=== PATIENT | male | born 1980 | race Caucasian/White ===

== ENCOUNTER 2016-02-28 18:37 | Emergency (ER) | payer OTHER ==
[~2016-02-28] VITALS: Ht 175.3 cm; Wt 104.6 kg
[~2016-02-28 18:37] MED LIST: ADDERALL XR 3030 MG PO; AMOXICILLIN500 MG PO; BUPRENORPHINE HC8 MG SL; BUPROPION HCL75 MG PO; BUPROPION XL150 MG PO; DIVALPROEX SOD250 M1 PO; FLEXERIL10 MG PO; FLUTICASONE PRO16 GM BOTH NARES; GABAPENTIN300 MG PO; GABAPENTIN400 MG PO; GABAPENTIN800 MG PO; KLONOPIN2 MG PO; LITHIUM CARBON300 M2 PO; METHADONE1 MG/1 ML PO; METHADONE10 MG PO; METHADONE10 MG/1 M1 PO; MOTRIN600 MG PO; NAPROSYN500 MG PO; NEURONTIN600 MG PO; NORCO 5/3251 TABLET PO; PHENOBARBITAL32.4 MG PO; PRAZOSIN HCL1 MG PO; PRAZOSIN HCL2 MG PO; RISPERDAL0.25 MG PO; RISPERDAL2 MG PO; RISPERIDONE1 MG PO; SUBOXONE 12 MG1 EACH SL; SUBOXONE 8 MG-1 EAC2 SL; WELLBUTRIN XL150 MG PO; WELLBUTRIN XL300 MG PO; XANAX2 MG PO; ZOLOFT50 MG PO
[2016-02-28] MEDS ORDERED: CLEOCIN300 MG PO (20:06)
[2016-02-28] MEDS ORDERED: NORCO 5/3251 TABLET PO (20:06)
[2016-02-28 20:26] VITALS: BP 138/86
== END 2016-02-28 20:27 | disposition home or self-care (01) ==
LOC: EME 18:37
DX: L03.211 Cellulitis of face (principal); Z86.14 Personal history of Methicillin resistant Staphylococcus aureus infection
CPT/HCPCS: 99281; 99283

== ENCOUNTER 2016-04-13 21:11 | Emergency (ER) | payer OTHER ==
[~2016-04-13] VITALS: Ht 175.3 cm; Wt 98.3 kg
[~2016-04-13 21:11] MED LIST changes: +CLEOCIN300 MG PO
[2016-04-13] MEDS ORDERED: ADDERALL XR 3030 MG PO (21:18)
[2016-04-13] MEDS ORDERED: GABAPENTIN800 MG PO (21:19)
[2016-04-13] MEDS ORDERED: METHADONE10 MG PO (21:19)
[2016-04-13 21:43] LABS: HEMATOCRIT 40.2 % (38.0-50.0); MCH 30.1 PG (29.0-34.0); MCHC 36.3 G/DL (30.0-36.0); MCV 82.9 FL (86-99); MEAN PLAT.VOLUME 11.2 uM^3 (9.0-12.4); PLATELET COUNT 257 K/uL (156-360); RBC DIS.WIDTH-CV 12.6 % (11.8-14.6); RBC DIS.WIDTH-SD 37.2 % (39-53); RED BLOOD COUNT 4.85 M/uL (4.00-5.50); WHITE BLOOD COUNT 12.8 K/uL (4.1-10.2)
[2016-04-13 21:46] LABS: EOSINOPHIL (%) 1.3 % (0-5); EOSINOPHIL COUNT 0.2 K/uL (0-0.3); IMMATURE GRANULOCYTE (%) 0.2 % (0.0-0.7); IMMATURE GRANULOCYTE COUNT 0.2 K/uL; LYMPHOCYTE COUNT 2.6 K/uL (1.0-2.8); MONOCYTE (%) 7.4 % (3-12); NEUTROPHIL (%) 70.6 % (45-76)
[2016-04-13 21:56] LABS: AMYLASE 30 IU/L (1-118); CHLORIDE 107 mEq/L (99-109); POTASSIUM 3.8 mEq/L (3.7-5.4); SODIUM 141 mEq/L (136-147)
[2016-04-13 21:58] LABS: GLUCOSE 94 mg/dL (70-99)
[2016-04-13 21:59] LABS: ANION GAP 12 MEQ/L (2-14)
[2016-04-13 22:01] LABS: SERUM ETHYL ALCOHOL < 10 mg/dL
[2016-04-13 22:02] LABS: GFR ESTIMATE (CALCULATED) > 59 mL/min/
[2016-04-13 22:03] LABS: UREA NITROGEN (BUN) 11 mg/dL (9-23)
[2016-04-13 22:05] LABS: LIPASE 11 U/L (1.0-51.0)
[2016-04-13 23:27] LABS: ADD MIUA? NO; BILIRUBIN NEGATIVE; BLOOD NEGATIVE; COLOR YELLOW ((YELLOW)); GLUCOSE (STRIP) NEGATIVE; KETONES NEGATIVE; LEUKOCYTES NEGATIVE; NITRITE NEGATIVE; PROTEIN (STRIP) NEGATIVE; UCUL ADDED? NO; UROBILINOGEN 0.2 MG/DL (0.2-1.0)
[2016-04-13 23:36] LABS: AMPHETAMINE NEGATIVE (500 ng/mL); COCAINE NEGATIVE (150 ng/mL); METHAMPHETAMINE NEGATIVE (500 ng/mL); OPIATES (MORPHINE) PRESUMPTIVE POSITIVE (100 ng/mL); PHENCYCLIDINE NEGATIVE (25 ng/mL); THC CANNABINOIDS NEGATIVE (50 ng/mL)
[2016-04-13 23:37] LABS: BARBITURATES NEGATIVE (200 ng/mL); BENZODIAZEPINES PRESUMPTIVE POSITIVE (150 ng/mL); INTERNAL CONTROLS VALID? YES; METHADONE PRESUMPTIVE POSITIVE (200 ng/mL); OXYCODONE NEGATIVE (100 ng/mL); PROPOXYPHENE NEGATIVE (300 ng/mL); TRICYCLIC ANTIDEPRESSANTS NEGATIVE (300 ng/mL)
[2016-04-13 23:38] LABS: ADD MEDTOX COMMENT Y
[2016-04-13 23:45] LABS: SPECIFIC GRAVITY 1.051 (1.000-1.030)
[2016-04-14 00:21] LABS: BENZODIAZEPINES, URINE SCREEN POSITIVE (200 ng/mL)
[2016-04-14] MEDS ORDERED: PREDNISONE20 MG PO (02:41)
[2016-04-14] MEDS ORDERED: NORCO 5/3251 TABLET PO (02:41)
[2016-04-14 03:02] VITALS: BP 146/82
== END 2016-04-14 03:03 | disposition home or self-care (01) ==
LOC: EME 21:11 → TRA 21:11
PROVIDERS: Emergency Medicine
DX: S13.9XXA Sprain of joints and ligaments of unspecified parts of neck, initial encounter (principal); S20.229A Contusion of unspecified back wall of thorax, initial encounter; S33.5XXA Sprain of ligaments of lumbar spine, initial encounter; V49.88XA Car occupant (driver) (passenger) injured in other specified transport accidents, initial encounter; F41.9 Anxiety disorder, unspecified; F17.200 Nicotine dependence, unspecified, uncomplicated
CPT/HCPCS: 70450; 71260; 72125; 72128; 72129; 72131; 72132; 72141; 74177; 80048; 81003; 82150; 83690; 84999; 85025; 86850; 86900; 86901; 99281; 99285; G0480; J2060; J2270; J2405; J7030

== ENCOUNTER 2016-04-19 09:50 | Emergency (ER) | payer OTHER ==
[~2016-04-19] VITALS: Ht 175.3 cm; Wt 97.2 kg
[~2016-04-19 09:50] MED LIST changes: +PREDNISONE20 MG PO
[2016-04-19 10:28] VITALS: BP 127/81
[2016-04-19 11:42] LABS: HEMATOCRIT 42.8 % (38.0-50.0); MCH 29.4 PG (29.0-34.0); MCHC 34.6 G/DL (30.0-36.0); MCV 84.9 FL (86-99); MEAN PLAT.VOLUME 11.2 uM^3 (9.0-12.4); PLATELET COUNT 223 K/uL (156-360); RBC DIS.WIDTH-CV 12.7 % (11.8-14.6); RBC DIS.WIDTH-SD 38.5 % (39-53); RED BLOOD COUNT 5.04 M/uL (4.00-5.50)
[2016-04-19 11:51] LABS: CHLORIDE 107 mEq/L (99-109); SODIUM 140 mEq/L (136-147)
[2016-04-19 11:53] LABS: GLUCOSE 91 mg/dL (70-99)
[2016-04-19 11:54] LABS: ANION GAP 7 MEQ/L (2-14); POTASSIUM 4.6 mEq/L (3.7-5.4)
[2016-04-19 11:56] LABS: SERUM ETHYL ALCOHOL < 10 mg/dL
[2016-04-19 11:57] LABS: GFR ESTIMATE (CALCULATED) > 59 mL/min/; UREA NITROGEN (BUN) 9 mg/dL (9-23)
[2016-04-19 11:58] LABS: WHITE BLOOD COUNT 4.6 K/uL (4.1-10.2)
== END 2016-04-19 13:25 | disposition left against medical advice (07) ==
LOC: EME 09:50
DX: R45.850 Homicidal ideations (principal); Z53.21 Procedure and treatment not carried out due to patient leaving prior to being seen by health care provider
CPT/HCPCS: 80048; 85027; G0480

== ENCOUNTER 2016-06-21 21:24 | Inpatient (IN) | payer OTHER ==
[~2016-06-21] VITALS: Ht 175.3 cm; Wt 95.5 kg
[2016-06-21 23:02] LABS: HEMATOCRIT 42.2 % (38.0-50.0); MCH 28.9 PG (29.0-34.0); MCHC 33.6 G/DL (30.0-36.0); MCV 85.9 FL (86-99); MEAN PLAT.VOLUME 10.9 uM^3 (9.0-12.4); PLATELET COUNT 292 K/uL (156-360); RBC DIS.WIDTH-CV 12.5 % (11.8-14.6); RBC DIS.WIDTH-SD 38.8 % (39-53); RED BLOOD COUNT 4.91 M/uL (4.00-5.50)
[2016-06-21 23:12] LABS: CHLORIDE 106 mEq/L (99-109); POTASSIUM 4.1 mEq/L (3.7-5.4); SODIUM 141 mEq/L (136-147)
[2016-06-21 23:14] LABS: GLUCOSE 76 mg/dL (70-99)
[2016-06-21 23:15] LABS: ANION GAP 10 MEQ/L (2-14)
[2016-06-21 23:17] LABS: SERUM ETHYL ALCOHOL < 10 mg/dL
[2016-06-21 23:18] LABS: AMPHETAMINE NEGATIVE (500 ng/mL); BARBITURATES NEGATIVE (200 ng/mL); BENZODIAZEPINES NEGATIVE (150 ng/mL); COCAINE PRESUMPTIVE POSITIVE (150 ng/mL); INTERNAL CONTROLS VALID? YES; METHADONE PRESUMPTIVE POSITIVE (200 ng/mL); METHAMPHETAMINE NEGATIVE (500 ng/mL); OPIATES (MORPHINE) NEGATIVE (100 ng/mL); OXYCODONE NEGATIVE (100 ng/mL); PHENCYCLIDINE NEGATIVE (25 ng/mL); PROPOXYPHENE NEGATIVE (300 ng/mL); THC CANNABINOIDS NEGATIVE (50 ng/mL); TRICYCLIC ANTIDEPRESSANTS NEGATIVE (300 ng/mL)
[2016-06-21 23:18] LABS: GFR ESTIMATE (CALCULATED) > 59 mL/min/
[2016-06-21 23:19] LABS: UREA NITROGEN (BUN) 16 mg/dL (9-23)
[2016-06-21 23:19] LABS: ADD MEDTOX COMMENT Y
[2016-06-22] MEDS ORDERED: PRAZOSIN HCL2 MG PO (11:17)
[2016-06-22] MEDS ORDERED: METHADONE10 MG/1 M1 PO (11:18)
[2016-06-22] MEDS ORDERED: WELLBUTRIN SR150 MG PO (11:19)
[2016-06-22 13:33] VITALS: BP 138/84
[2016-06-22 16:10] VITALS: BP 129/75
[2016-06-23 08:12] VITALS: BP 115/68
[2016-06-23 16:20] VITALS: BP 131/79
[2016-06-24 08:00] VITALS: BP 125/68
[2016-06-24 15:50] VITALS: BP 109/72
[2016-06-25 07:46] VITALS: BP 134/76
[2016-06-25 15:30] VITALS: BP 113/74
[2016-06-26 07:49] VITALS: BP 121/62
[2016-06-26 15:32] VITALS: BP 127/59
[2016-06-27 07:47] VITALS: BP 126/65
[2016-06-27] MEDS ORDERED: PRAZOSIN HCL1 MG PO (09:14)
[2016-06-27] MEDS ORDERED: GABAPENTIN800 MG PO (09:14)
[2016-06-27] MEDS ORDERED: BUPROPION XL300 MG PO (09:14)
== END 2016-06-27 10:04 | DRG 918 ==
LOC: EME 21:24 → EDOF 06-22 11:01 → 1WEST 06-22 11:01
DX: T40.1X2A Poisoning by heroin, intentional self-harm, initial encounter (principal); F11.20 Opioid dependence, uncomplicated; F33.2 Major depressive disorder, recurrent severe without psychotic features; F14.10 Cocaine abuse, uncomplicated; Z76.5 Malingerer [conscious simulation]
CPT/HCPCS: 80048; 84999; 85027; 90839; 97150 GO; 97165 GO; 99281; 99285; G0480; Q0177

== ENCOUNTER 2016-08-12 00:51 | Emergency (ER) | payer OTHER ==
[~2016-08-12] VITALS: Ht 175.3 cm; Wt 97.3 kg
[~2016-08-12 00:51] MED LIST changes: +BUPROPION XL300 MG PO; +WELLBUTRIN SR150 MG PO
[2016-08-12] MEDS ORDERED: TYLENOL WITH C1 EACH PO (01:51)
[2016-08-12] MEDS ORDERED: PEN-VEE K,VEET500 MG PO (01:51)
[2016-08-12 02:14] VITALS: BP 125/82
== END 2016-08-12 02:15 | disposition home or self-care (01) ==
LOC: EME 00:51
PROC: 3E0T3BZ Introduction of Anesthetic Agent into Peripheral Nerves and Plexi, Percutaneous Approach (ICD-10-PCS; principal; 2016-08-12)
DX: K08.89 Other specified disorders of teeth and supporting structures (principal); F17.200 Nicotine dependence, unspecified, uncomplicated
CPT/HCPCS: 99281; 99284

== ENCOUNTER 2016-08-22 23:59 | Inpatient (IN) | payer OTHER ==
[~2016-08-22] VITALS: Ht 175.3 cm; Wt 92.2 kg
[~2016-08-22 23:59] MED LIST changes: +PEN-VEE K,VEET500 MG PO; +TYLENOL WITH C1 EACH PO
[2016-08-23 02:03] LABS: HEMATOCRIT 39.3 % (38.0-50.0); MCH 29.4 PG (29.0-34.0); MCHC 33.8 G/DL (30.0-36.0); MCV 86.9 FL (86-99); MEAN PLAT.VOLUME 10.9 uM^3 (9.0-12.4); PLATELET COUNT 215 K/uL (156-360); RBC DIS.WIDTH-CV 12.5 % (11.8-14.6); RBC DIS.WIDTH-SD 39.8 % (39-53); RED BLOOD COUNT 4.52 M/uL (4.00-5.50); WHITE BLOOD COUNT 8.7 K/uL (4.1-10.2)
[2016-08-23 02:16] LABS: CHLORIDE 106 mEq/L (99-109); POTASSIUM 4.6 mEq/L (3.7-5.4); SODIUM 142 mEq/L (136-147)
[2016-08-23 02:18] LABS: GLUCOSE 141 mg/dL (70-99)
[2016-08-23 02:19] LABS: ANION GAP 8 MEQ/L (2-14)
[2016-08-23 02:21] LABS: SERUM ETHYL ALCOHOL < 10 mg/dL
[2016-08-23 02:22] LABS: GFR ESTIMATE (CALCULATED) > 59 mL/min/
[2016-08-23 02:23] LABS: UREA NITROGEN (BUN) 8 mg/dL (9-23)
[2016-08-23 02:25] LABS: SALICYLATE < 5.0 MG/DL (15-30)
[2016-08-23 04:32] VITALS: BP 108/72
[2016-08-23] MEDS ORDERED: ADDERALL30 MG PO (04:41)
[2016-08-23 07:49] VITALS: BP 121/70
[2016-08-23 15:33] VITALS: BP 143/66
[2016-08-24 07:22] VITALS: BP 139/66
[2016-08-24 16:15] VITALS: BP 127/66
[2016-08-25 07:28] VITALS: BP 133/58
[2016-08-25] MEDS ORDERED: PRAZOSIN HCL1 MG PO (08:57)
[2016-08-25] MEDS ORDERED: BUPROPION XL150 MG PO (08:57)
[2016-08-25] MEDS ORDERED: GABAPENTIN800 MG PO (08:57)
[2016-08-25] MEDS ORDERED: PRAZOSIN HCL2 MG PO (09:18)
== END 2016-08-25 09:42 | disposition home or self-care (01) | DRG 885 ==
LOC: EME 23:59 → EDOF 08-23 03:26 → 1WEST 08-23 03:26
PROVIDERS: Emergency Medicine
DX: F33.9 Major depressive disorder, recurrent, unspecified (principal); F11.20 Opioid dependence, uncomplicated; R45.851 Suicidal ideations; R44.0 Auditory hallucinations; Z91.14 Patient's other noncompliance with medication regimen; F17.210 Nicotine dependence, cigarettes, uncomplicated; T40.3X2A Poisoning by methadone, intentional self-harm, initial encounter; T40.1X2A Poisoning by heroin, intentional self-harm, initial encounter; R45.4 Irritability and anger; F41.9 Anxiety disorder, unspecified; F43.10 Post-traumatic stress disorder, unspecified; F19.10 Other psychoactive substance abuse, uncomplicated; Z60.2 Problems related to living alone; Z81.8 Family history of other mental and behavioral disorders; Z56.0 Unemployment, unspecified; Z91.5 Personal history of self-harm; Z76.5 Malingerer [conscious simulation]; Y92.099 Unspecified place in other non-institutional residence as the place of occurrence of the external cause
CPT/HCPCS: 80048; 81003; 85027; 90839; 97150 GO; 97165 GO; 99281; 99285; G0480

== ENCOUNTER 2016-10-15 11:58 | Emergency (ER) | payer OTHER ==
[~2016-10-15] VITALS: Ht 175.3 cm; Wt 89.3 kg
[~2016-10-15 11:58] MED LIST changes: +ADDERALL30 MG PO
[2016-10-15 12:41] LABS: HEMATOCRIT 41.1 % (38.0-50.0); MCH 29.4 PG (29.0-34.0); MCHC 34.3 G/DL (30.0-36.0); MCV 85.6 FL (86-99); MEAN PLAT.VOLUME 10.4 uM^3 (9.0-12.4); PLATELET COUNT 261 K/uL (156-360); RBC DIS.WIDTH-CV 12.6 % (11.8-14.6); RBC DIS.WIDTH-SD 39.4 % (39-53); WHITE BLOOD COUNT 10.4 K/uL (4.1-10.2)
[2016-10-15 12:48] LABS: CHLORIDE 111 mEq/L (99-109); POTASSIUM 3.5 mEq/L (3.7-5.4); SODIUM 145 mEq/L (136-147)
[2016-10-15 12:50] LABS: GLUCOSE 134 mg/dL (70-99)
[2016-10-15 12:51] LABS: ANION GAP 12 MEQ/L (2-14)
[2016-10-15 12:53] LABS: SERUM ETHYL ALCOHOL < 10 mg/dL
[2016-10-15 12:54] LABS: GFR ESTIMATE (CALCULATED) > 59 mL/min/
[2016-10-15 12:55] LABS: UREA NITROGEN (BUN) 27 mg/dL (9-23)
[2016-10-15 14:32] LABS: AMPHETAMINE PRESUMPTIVE POSITIVE (500 ng/mL); BARBITURATES NEGATIVE (200 ng/mL); BENZODIAZEPINES PRESUMPTIVE POSITIVE (150 ng/mL); COCAINE PRESUMPTIVE POSITIVE (150 ng/mL); INTERNAL CONTROLS VALID? YES; METHADONE NEGATIVE (200 ng/mL); METHAMPHETAMINE NEGATIVE (500 ng/mL); OPIATES (MORPHINE) PRESUMPTIVE POSITIVE (100 ng/mL); OXYCODONE NEGATIVE (100 ng/mL); PHENCYCLIDINE NEGATIVE (25 ng/mL); PROPOXYPHENE NEGATIVE (300 ng/mL); THC CANNABINOIDS NEGATIVE (50 ng/mL); TRICYCLIC ANTIDEPRESSANTS NEGATIVE (300 ng/mL)
[2016-10-15 14:33] LABS: ADD MEDTOX COMMENT Y
[2016-10-15 15:08] LABS: BENZODIAZEPINES, URINE SCREEN POSITIVE (200 ng/mL)
[2016-10-16 01:32] VITALS: BP 141/83
== END 2016-10-16 03:20 ==
LOC: EME 11:58
PROVIDERS: Emergency Medicine
DX: F32.9 Major depressive disorder, single episode, unspecified (principal); R45.851 Suicidal ideations; F11.90 Opioid use, unspecified, uncomplicated; K02.9 Dental caries, unspecified; F17.200 Nicotine dependence, unspecified, uncomplicated
CPT/HCPCS: 80048; 84999; 85027; 90837; 99281; 99285; G0480

== ENCOUNTER 2016-11-08 21:00 | Emergency (ER) | payer OTHER ==
[~2016-11-08] VITALS: Ht 175.3 cm; Wt 102.1 kg
[2016-11-08] MEDS ORDERED: PERCOCET 5/31 TABLET PO (23:16)
[2016-11-08] MEDS ORDERED: AMOXICILLIN500 M1 PO (23:17)
[2016-11-08] MEDS ORDERED: ULTRACET1 TABLET PO (23:36)
[2016-11-08 23:41] VITALS: BP 154/90
== END 2016-11-08 23:42 | disposition home or self-care (01) ==
LOC: EME 21:00 → EXP 21:00
PROC: 3E0T3BZ Introduction of Anesthetic Agent into Peripheral Nerves and Plexi, Percutaneous Approach (ICD-10-PCS; principal; 2016-11-08)
DX: K08.89 Other specified disorders of teeth and supporting structures (principal); F17.200 Nicotine dependence, unspecified, uncomplicated
CPT/HCPCS: 99281; 99283

== ENCOUNTER 2016-11-30 09:36 | Inpatient (IN) | payer OTHER ==
[~2016-11-30] VITALS: Ht 175.3 cm; Wt 98.3 kg
[~2016-11-30 09:36] MED LIST changes: +AMOXICILLIN500 M1 PO; +PERCOCET 5/31 TABLET PO; +ULTRACET1 TABLET PO
[2016-11-30 10:28] LABS: HEMATOCRIT 41.4 % (38.0-50.0); MCH 29.1 PG (29.0-34.0); MCHC 34.3 G/DL (30.0-36.0); MCV 84.8 FL (86-99); MEAN PLAT.VOLUME 10.5 uM^3 (9.0-12.4); PLATELET COUNT 314 K/uL (156-360); RBC DIS.WIDTH-CV 11.9 % (11.8-14.6); RBC DIS.WIDTH-SD 36.2 % (39-53); RED BLOOD COUNT 4.88 M/uL (4.00-5.50); WHITE BLOOD COUNT 9.7 K/uL (4.1-10.2)
[2016-11-30 10:37] LABS: CHLORIDE 104 mEq/L (99-109); POTASSIUM 4.3 mEq/L (3.7-5.4); SODIUM 138 mEq/L (136-147)
[2016-11-30 10:39] LABS: GLUCOSE 109 mg/dL (70-99)
[2016-11-30 10:40] LABS: ANION GAP 9 MEQ/L (2-14)
[2016-11-30 10:43] LABS: GFR ESTIMATE (CALCULATED) > 59 mL/min/
[2016-11-30 10:44] LABS: UREA NITROGEN (BUN) 18 mg/dL (9-23)
[2016-11-30] MEDS ORDERED: MINIPRESS1 MG PO (12:57)
[2016-11-30] MEDS ORDERED: ULTRACET1 TABLET PO (12:59)
[2016-11-30] MEDS ORDERED: ADDERALL XR 3030 MG PO ×2 (12:59→13:00)
[2016-11-30] MEDS ORDERED: NEURONTIN800 MG PO (13:00)
[2016-11-30 15:00] VITALS: BP 128/78
[2016-11-30 23:50] VITALS: BP 129/67
[2016-12-01 06:45] LABS: HEMATOCRIT 39.8 % (38.0-50.0); MCH 30.2 PG (29.0-34.0); MCHC 34.9 G/DL (30.0-36.0); MCV 86.5 FL (86-99); PLATELET COUNT 247 K/uL (156-360); RBC DIS.WIDTH-CV 11.9 % (11.8-14.6); RBC DIS.WIDTH-SD 37.7 % (39-53); WHITE BLOOD COUNT 5.7 K/uL (4.1-10.2)
[2016-12-01 07:07] LABS: ANION GAP 9 MEQ/L (2-14); CHLORIDE 103 MEQ/L (99-109); GFR ESTIMATE (CALCULATED) > 59 mL/min/; GLUCOSE 85 mg/dL (70-99); POTASSIUM 4.3 MEQ/L (3.7-5.4); SAMPLE HEMOLYSIS CHECK 0; SAMPLE ICTERIC CHECK 0; SAMPLE LIPEMIA CHECK 0; SODIUM 135 MEQ/L (136-147); UREA NITROGEN (BUN) 13 mg/dL (9-23)
[2016-12-01 07:36] VITALS: BP 134/82
[2016-12-01 15:30] VITALS: BP 141/84
[2016-12-01 23:35] VITALS: BP 136/71
[2016-12-02 07:50] VITALS: BP 119/59
[2016-12-02] MEDS ORDERED: MEDROL DOSEPAK4 MG PO (08:37)
[2016-12-02] MEDS ORDERED: LEVAQUIN750 MG PO (08:37)
[2016-12-02] MEDS ORDERED: PERCOCET 5/31 TABLET PO (08:38)
== END 2016-12-02 09:25 | disposition home or self-care (01) | DRG 194 ==
LOC: EME 09:36 → EDOF 12:13 → 5SOUTH 12:13 → ENRESERV 12:22 → 5SOUTH 14:11
PROVIDERS: Family Medicine; Internal Medicine
DX: J18.1 Lobar pneumonia, unspecified organism (principal); F90.9 Attention-deficit hyperactivity disorder, unspecified type; F11.20 Opioid dependence, uncomplicated; F17.210 Nicotine dependence, cigarettes, uncomplicated; R09.02 Hypoxemia; J90 Pleural effusion, not elsewhere classified
CPT/HCPCS: 71020; 71275; 80048; 83605; 85027; 85379; 87040; 87070; 87205; 90686; 93005; 94640; 94760; 94799; 99202; 99281; 99285; J0456; J0696; J1170; J1650; J2270; J7030; J7050; J7512; S0028

== ENCOUNTER 2017-08-23 16:20 | Emergency (ER) | payer OTHER ==
[~2017-08-23] VITALS: Ht 175.3 cm; Wt 106.7 kg
[~2017-08-23 16:20] MED LIST changes: +LEVAQUIN750 MG PO; +MEDROL DOSEPAK4 MG PO; +MINIPRESS1 MG PO; +NEURONTIN800 MG PO
[2017-08-23 16:48] LABS: HEMATOCRIT 44.2 % (38.0-50.0); HEMOGLOBIN 15.9 G/DL (12.5-16.6); MCH 30.1 PG (29.0-34.0); MCV 83.7 FL (86-99); PLATELET COUNT 298 K/uL (156-360); RBC DIS.WIDTH-CV 12.1 % (11.8-14.6); RBC DIS.WIDTH-SD 36.8 % (39-53); RED BLOOD COUNT 5.28 M/uL (4.00-5.50)
[2017-08-23 17:01] LABS: CHLORIDE 103 mEq/L (99-109); SODIUM 139 mEq/L (136-147)
[2017-08-23 17:02] LABS: GLUCOSE 120 mg/dL (70-99)
[2017-08-23 17:06] LABS: GFR ESTIMATE (CALCULATED) > 59 mL/min/ (58.99-99999)
[2017-08-23 17:07] LABS: UREA NITROGEN (BUN) 24 mg/dL (9-23)
[2017-08-23 17:09] LABS: TROP-I INTERPRETATION NEGATIVE; TROPONIN-I < 0.01 ng/mL (0.0-0.30)
[2017-08-23 20:20] LABS: TROP-I INTERPRETATION NEGATIVE; TROPONIN-I < 0.01 ng/mL (0.0-0.30)
[2017-08-23 21:03] VITALS: BP 127/95
== END 2017-08-23 21:06 | disposition home or self-care (01) ==
LOC: RME 16:20 → EME 16:20 → RME 21:06
PROVIDERS: Physician Assistant Medical
DX: R07.89 Other chest pain (principal); F41.9 Anxiety disorder, unspecified; R56.9 Unspecified convulsions; F17.200 Nicotine dependence, unspecified, uncomplicated
CPT/HCPCS: 71046; 80048; 84484; 85027; 93005; 99281; 99284; Q0177